=== PATIENT | female | born 1950 | race Two or more races ===

== ENCOUNTER 2017-01-01 15:46 | Emergency (ER) | payer OTHER, MEDICAID ==
[~2017-01-01] VITALS: Ht 157.5 cm; Wt 81.6 kg
[2017-01-01 16:13] VITALS: BP 201/83
[2017-01-01] MEDS ORDERED: ALBUTEROL SULF 2.5 MG/0.5ML(0.5%) NEB SOLN NEB ONE (17:15)
[2017-01-01] MEDS ORDERED: IPRATROPIUM BROM 0.5 MG/2.5ML INH SOL NEB ONE (17:15)
[2017-01-01] MEDS ORDERED: cefTRIAXone SOD 1,000 MG VL IM ONE (17:30)
== END 2017-01-01 18:00 | disposition home or self-care (01) ==
LOC: EDUNIT# 15:46 → EDBD 15:46 → ER 15:49
DX: J20.9 Acute bronchitis, unspecified (principal); J02.9 Acute pharyngitis, unspecified; M19.90 Unspecified osteoarthritis, unspecified site; I10 Essential (primary) hypertension
CPT/HCPCS: 71020; 94640; 96372; 99284; J0696